=== PATIENT | male | born 1985 ===

== ENCOUNTER 2018-05-31 21:46 | Emergency (ER) | payer OTHER ==
--- NOTE | 2018-05-31 21:58 | ED Physician Documentation ---
PD HPI LOWER EXT INJURY - Stated complaint Stated Complaint: ANKLE INJURY - Chief complaint Chief Complaint: Trauma Ext - History obtained from History obtained from: Patient - History of Present Illness PD HPI LOW EXT INJURY LOCATION: Right, Ankle Type of injury: Twist Where injury occurred: Home Timing - onset: How many days ago (3) Timing - duration: Days (3) Timing - details: Gradual onset Pain level max: 5 Pain level now: 4 Improved by: Rest, Ice, Immobilization Worsened by: Moving, Palpating Associated symptoms: Swelling. No: Weakness, Numbness, Tingling Contributing factors: Prior ortho surgery (R ankle surgery for tendon repair) Recently seen: Not recently seen - Additional information Additional information: Patient is a 32-year-old male who presents to the emergency department the right ankle pain after rolling his ankle 3 days ago. He states that he has had surgery on this ankle in the past as his tendons were frayed. He is visiting from [place] but does have a house in [place]. Review of Systems Constitutional: denies: Fever, Chills Respiratory: denies: Cough GI: denies: Nausea, Vomiting, Diarrhea Skin: denies: Rash Musculoskeletal: denies: Neck pain, Back pain Neurologic: denies: Headache PD PAST MEDICAL HISTORY - Past Medical History Past Medical History: No - Past Surgical History Past Surgical History: Yes Ortho: Other (R ankle surgery) - Present Medications Home Medications: Ambulatory Orders Medication Instructions Recorded Confirmed Ciprofloxacin [Cipro] 500 mg PO BID #20 tablet 05/01/14 HYDROcod/ACETAM 5/325 [Vicodin 1 - 2 ea PO Q6H PRN #15 tablet 05/01/14 5/325] metroNIDAZOLE [Flagyl] 500 mg PO BID 7 Days tablet 05/01/14 - Allergies Allergies/Adverse Reactions: Allergies Allergy/AdvReac Type Severity Reaction Status Date / Time No Known Drug Allergies Allergy Verified 05/31/18 21:53 - Social History Does the pt smoke?: Yes Smoking Status: Current every day smoker Does the pt drink ETOH?: No Does the pt have substance abuse?: No PD ED PE NORMAL - Vitals Vital signs reviewed: Yes - General General: Alert and oriented X 3, No acute distress - HEENT HEENT: Moist mucous membranes - Derm Derm: Warm and dry - Extremities Extremities: Other (R ankle - Tender to palpation on the medial aspect of the right ankle. Mild tenderness over the malleolus. No gross deformity. Mild swelling. Achilles is intact. Neurovascular intact. Otherwise normal examination of the foot and ankle. ) - Neuro Neuro: Alert and oriented X 3 - Psych Psych: Normal mood, Normal affect Results - Vitals Vitals: Vital Signs - 24 hr 05/31/18 21:51 Temperature 36.3 C L Heart Rate 88 Respiratory 16 Rate Blood Pressure 149/84 H O2 Saturation 94 Oxygen O2 Source Room air - Rads (name of study) R ankle xray Radiology: Prelim report reviewed, EMP read contemporaneously, See rad report (no acute fractures or dislocations.) PD MEDICAL DECISION MAKING - ED course Complexity details: reviewed results, re-evaluated patient, considered differential, d/w patient ED course: Patient is a 32-year-old male who presents to the emergency department with a right ankle sprain. No acute findings on x-ray. Placed in a gel splint and given crutches. Will have him follow-up with orthopedics for further care. Patient counseled regarding signs and symptoms for which I believe and urgent re-evaluation would be necessary. Patient with good understanding of and agreement to plan and is comfortable going home at this time This document was made in part using voice recognition software. While efforts are made to proofread this document, sound alike and grammatical errors may occur. - Sepsis Event Vital Signs: Vital Signs - 24 hr 05/31/18 21:51 Temperature 36.3 C L Heart Rate 88 Respiratory 16 Rate Blood Pressure 149/84 H O2 Saturation 94 Oxygen O2 Source Room air Departure - Departure Disposition: 01 Home, Self Care Clinical Impression: Left ankle sprain Qualifiers: Encounter type: initial encounter Involved ligament of ankle: unspecified ligament Qualified Code(s): S93.402A - Sprain of unspecified ligament of left ankle, initial encounter Condition: Good Instructions: ED Sprain Ankle [facility] [Provider Group] Comments: You may bear weight as tolerated. Use the crutches to help with the pain. Return if you worsen. It is important to follow-up with orthopedics for further care.
[2018-05-31 22:03] VITALS: BP 149/84
[2018-05-31] MEDS ORDERED: IBUPROFEN 800 MG TABLET PO STA (22:10)
--- NOTE | 2018-05-31 22:23 | XRAY Report ---
Reason: R ankle pain x days, felt a "pop" Procedure Date: 05/31/2018 Accession Number: [id number] / [id number] Procedure: XR - Ankle 3 View RT CPT Code: FULL RESULT: EXAM: RIGHT ANKLE RADIOGRAPHY EXAM DATE: 05/31/2018 10:08 PM. CLINICAL HISTORY: R ankle pain x days, felt a pop. COMPARISON: None. TECHNIQUE: 3 views. FINDINGS: Bones: No fracture seen. Joints: No dislocation. Ankle mortise appears intact. Animal degenerative joint disease. Possible small joint effusion. Soft Tissues: Mild soft tissue swelling. IMPRESSION: 1. Mild degenerative changes. No acute fracture or dislocation seen. 2. Mild soft tissue swelling and possible small joint effusion. [facility]
== END 2018-05-31 22:35 | disposition home or self-care (01) ==
LOC: ED 21:46
DX: S93.401A Sprain of unspecified ligament of right ankle, initial encounter (principal); X50.1XXA Overexertion from prolonged static or awkward postures, initial encounter; Y92.009 Unspecified place in unspecified non-institutional (private) residence as the place of occurrence of the external cause; F17.200 Nicotine dependence, unspecified, uncomplicated
CPT/HCPCS: 73610; 99283; A9270